=== PATIENT | female | born 1990 | race Two or more races ===

== ENCOUNTER 2016-08-10 19:35 | Emergency (ER) | payer MEDICAID ==
[2016-08-10] MEDS ORDERED: IBUPROFEN 200 MG TABLET ONE (20:41)
[2016-08-10] MEDS ORDERED: AMOXICILLIN TRIHYDRATE 250 MG CAPSULE ONE (20:41)
[2016-08-10] MEDS ORDERED: HYDROCODONE/ACETAMINOPHEN 5/325MG TABLET ONE (20:41)
[2016-08-10] MEDS ORDERED: DEXAMETHASONE SOD PHOS 10 MG/1 ML VIAL ONE (20:41)
== END 2016-08-10 20:51 | disposition home or self-care (01) ==
LOC: ED 19:35
DX: K02.9 Dental caries, unspecified (principal)
CPT/HCPCS: 99283 ×2; A9270 ×3; J1100